=== PATIENT | female | born 1945 | race Caucasian/White ===

== ENCOUNTER → 2020-09-23 14:20 | Outpatient (BNVA) | payer MEDICARE, SELFPAY | PROVIDERS: PCP Registered Nurse; Visit Provider Surgery | DX: Z20.822 Contact with and (suspected) exposure to COVID-19 (principal); Z86.010 Personal history of colon polyps | CPT/HCPCS: 87635 ==

== ENCOUNTER 2020-09-29 10:40 | Day surgery (SDC) | payer MEDICARE, SELFPAY ==
[2020-09-28 10:34] VITALS: BMI 32.8
[2020-09-29 11:11] VITALS: BP 116/73; PULSE 58; RESP 18; TEMP 36.6; O2SAT 97
[2020-09-29] MEDS: sodium chloride 0.9% 1,000 ML 30 ML IV (11:24)
--- NOTE | 2020-09-29 11:53 | W.PM.OPSFHP ---
Same Day Surgery H&P Indication for Procedure/HPI DATE OF PROCEDURE: September 29, 2020 CHIEF COMPLAINT/INDICATIONFOR SURGICAL PROCEDURE: History of colon polyps PREOP DIAGNOSIS: History of colon polyps PLANNED PROCEDRUE: Operation Date: 09/29/20 12:00 Proposed Procedures p Colonoscopy 79982 z86.010(Not Applicable) - Miles Cox MD This is a pleasant 74 years old female patient well-known to me from previous encounter for laparoscopic ventral hernia repair. Patient presents today to my practice with history of colon polyps as she did have a colonoscopy before 5 years or so and she comes today to discuss surveillance colonoscopy she denies bleeding per rectum or history of colon cancer Interim history 09/29/2020 Patient comes today for surveillance colonoscopy ROS All systems have been reviewed negative except as per the above or per problem list Medications/Allergies* Home Medications Medication Instructions Recorded Confirmed Type aspirin 325 mg tablet 325 mg PO DAILY 08/11/20 09/29/20 History hydrochlorothiazide 12.5 mg capsule 12.5 mg PO DAILY 08/11/20 09/29/20 History lisinopril 10 mg tablet 10 mg PO DAILY 08/11/20 09/29/20 History magnesium 200 mg tablet 200 mg PO DAILY 08/11/20 09/29/20 History metoprolol tartrate 12.5 mg PO BID 09/28/20 09/29/20 History Allergies/Adverse Reactions Allergy/AdvReac Type Severity Reaction Status Date / Time No Known Allergies Allergy Verified 09/29/20 11:55 Current Medications: Generic Name Dose Route Start Last Admin Trade Name Freq PRN Reason Stop Dose Admin Sodium Chloride 1,000 mls @ 30 mls/hr 09/29/20 11:00 09/29/20 11:24 Sodium Chloride 0.9% IV 09/30/20 10:59 30 mls/hr .Q24H SINGH Administration Pertinent History/Comorbid Conditions* Family History (Updated 08/11/20 @ 10:04 by Rosa Chisholm RN) Denies family history of Anesthesia complication Bleeding disorder Social History Smoking and tobacco status: never smoked Pertinent Exam Findings alert, clear to auscultation bilaterally, regular rate & rhythm, operative site marked and procedure specific exam findings (Abdominal examination nontender nondistended soft, obese) Recommendations Surgery/Procedure today (Colonoscopy with possible biopsy and possible polypectomy) Other Plans: Plan of care; After thorough history and physical examination and reviewing the chart, plan to perform surveillance colonoscopy colonoscopy. I discussed with the patient in details the risks,benefits,alternatives and indications.The risk of aspiration, bleeding, soft tissue injury, perforation of the colon and other potential concomitant complications were explained to the patient in details,also the potential need for Laproscoy/Laparotomy to repair any related complications including but not limited to colectomy and or Closotomy.The patient understood this well and did agree to proceed. Rationale was carefully and clearly discussed with the patient.Appropriate informed consent have been reviewed and signed All questions have been answered and all concerns have been addressed to patient's satisfaction. Verbal and written Instructions were given to the patient for colonoscopy prep Coding Level of Care Code Acute Home Health Outreach Coordinator for Blaise Robles
--- NOTE | 2020-09-29 12:02 | ANES.PREANE2 ---
Pre-Anesthetic Assessment Pre-Anesthetic Assessment: Height/Weight: Height 1.7 m Weight 95.254 kg Temp Pulse Resp BP Pulse Ox 97.9 F 58 L 18 116/73 97 09/29/20 11:11 09/29/20 11:11 09/29/20 11:11 09/29/20 11:11 09/29/20 11:11 Preop Diagnosis: History of colon polyps Proposed Procedure: Operation Date: 09/29/20 12:00 Proposed Procedures p Colonoscopy 55189 z86.010(Not Applicable) - Miles Cox MD Was Beta Michelle taken within 24 hours: Yes Last intake: Intake Last Liquid Date 09/28/20 Last Liquid Time 22:00 Last Solid Date 09/28/20 Last Solid Time 06:30 Social: Social History: No alcohol and No tobacco Exam: Pre-Anes Outpt Exam: alert, oriented x 3, clear to auscultation bilaterally and regular rate & rhythm Airway: Submandibular: WNL Cervical ROM: WNL MP: 2 Additional comments: upper edentulous, missing several on lower arch CV/HEM: CV/HEM: HTN Metabolic: Metabolic: Morbid obesity Anesthetic Plan: ASA status: 3 Anesthesia: MAC Risk of > 500 ml blood loss (7ml/kg in children): No Meds/Allergies Current Medications: Current Medications Generic Name Dose Route Start Last Admin Trade Name Freq PRN Reason Stop Dose Admin Sodium Chloride 1,000 mls @ 30 ml s/hr 09/29/20 11:00 09/29/20 11:24 Sodium Chloride 0.9% IV 09/30/20 10:59 30 mls/hr .Q24H SINGH Administration PFSH Anesthesia PFSH: Family History Denies family history of Anesthesia complication Bleeding disorder Social History Smoking and tobacco status: never smoked Data Anesthesia Cardiac Studies: No Data to Display
--- NOTE | 2020-09-29 12:29 | ANE.PACU2 ---
Inpatient post-anesthesia follow up: Airway intact: Yes Vital signs: Temperature 97.9 F Pulse Rate 58 Respiratory Rate 18 Blood Pressure 116/73 Pulse Oximetry 97 Oxygen Delivery Me thod Room Air Oxygen Flow Rate Fraction of Inspir ed Oxygen Hydration adequate: Yes Nausea and vomiting: No Pain level: 1 Mental status: Baseline
[2020-09-29 12:32] VITALS: BP 103/66; PULSE 61; RESP 12; TEMP 36.2; O2SAT 96
--- NOTE | 2020-09-29 12:52 | ANE.PACU2 ---
Inpatient post-anesthesia follow up: Airway intact: Yes Vital signs: Temperature 97.2 F Pulse Rate 61 Respiratory Rate 12 Blood Pressure 103/66 Pulse Oximetry 96 Oxygen Delivery Me thod Nasal Cannula Oxygen Flow Rate 2 Fraction of Inspir ed Oxygen Hydration adequate: Yes Nausea and vomiting: No Pain level: 1 Mental status: Baseline
[2020-09-29 13:05] VITALS: BP 121/81; PULSE 61; RESP 12; TEMP 36.2; O2SAT 98
== END 2020-09-29 13:15 | disposition home or self-care (01) ==
PROVIDERS: PCP Registered Nurse; Visit Provider Surgery
PROC: 0DJD8ZZ Inspection of Lower Intestinal Tract, Via Natural or Artificial Opening Endoscopic (ICD-10-PCS; CPT 45378; principal; 2020-09-29 12:00)
DX: Z12.11 Encounter for screening for malignant neoplasm of colon (principal); D12.3 Benign neoplasm of transverse colon; K57.30 Diverticulosis of large intestine without perforation or abscess without bleeding; Z86.010 Personal history of colon polyps; Z79.82 Long term (current) use of aspirin; I10 Essential (primary) hypertension; E66.01 Morbid (severe) obesity due to excess calories; Z68.32 Body mass index [BMI] 32.0-32.9, adult
CPT/HCPCS: 45380; 88305; J7030

== ENCOUNTER 2022-04-25 12:53 | Outpatient (CLI) | payer MEDICARE, SELFPAY ==
--- NOTE | 2022-04-25 13:08 | MM_ITS ---
WS: [id number] BILATERAL 3D TOMOSYNTHESIS DIGITAL DIAGNOSTIC MAMMOGRAPHY WITH CAD CLINICAL INFORMATION: RT BREAST LUMP HISTORY: Palpable lumps RIGHT breast COMPARISON: Outside examinations April 13, 2021 and April 06, 2020 TECHNIQUE: Bilateral CC, MLO, and ML views. FINDINGS: Scattered fibroglandular densities bilaterally. Palpable markers RIGHT breast. No definite underlying mammographic abnormalities in the area of palpable markers. Ultrasound is pending. LEFT breast is unremarkable and unchanged. Scattered bilateral incidental punctate calcifications. ULTRASOUND BREAST RIGHT TECHNIQUE: Ultrasound right breast focused area of concern. CLINICAL INFORMATION: RT BREAST LUMP FINDINGS: Ultrasound RIGHT breast area of palpable concern. Ultrasound at the 7:00 position 3 cm from the nippl e and 4:00 position 2 cm from the nipple. Normal-appearing underlying parenchymal tissue. No cystic o r solid lesions. No suspicious lesions to target for biopsy. Recommend return to annual screening [facility] MM/[place] [id number] IMPRESSION: BI-RADS: 2-Benign FOLLOW UP: 1 Year Follow-up Recommend return to annual screening mammography.
== END 2022-04-25 12:54 | disposition home or self-care (01) ==
LOC: RAD 12:55
PROVIDERS: PCP Registered Nurse; Visit Provider Registered Nurse
DX: N63.10 Unspecified lump in the right breast, unspecified quadrant (principal)
CPT/HCPCS: 76642; 77062

== ENCOUNTER 2023-05-15 08:01 | Outpatient (CLI) | payer MEDICARE, SELFPAY ==
--- NOTE | 2023-05-15 08:00 | MM_ITS ---
WS: [id number] Bilateral screening 3D tomosynthesis digital mammogram, 05/15/2023 Clinical Data: SCREENING Comparison: 03/25/2022, 04/13/2021, 04/06/2020, 03/25/2019, 03/27/2018, 03/20/2017, 03/14/2016, 03/16/2015, 03/10, 02/10/2013, 08/31/2009, 09/08/2008, 03/24/2008, 09/08/2007. Findings: The breast parenchymal pattern shows fibroglandular tissue. No spiculated masses or clustered calcifi cations are seen. There are no secondary signs of carcinoma. Mole markers are on both breasts. There are small lymph nodes in both axilla. Impression: 1. Negative bilateral mammogram unchanged. 2. Recommend annual screening mammograms. MM/[place] [id number] BIRADS: 1-Negative FOLLOW UP: 1 Year Follow-up The CAD cargo checker was used.
== END 2023-05-15 08:02 | disposition home or self-care (01) ==
LOC: MOBLMAM 08:11
PROVIDERS: Visit Provider Nurse Practitioner Family
DX: Z12.31 Encounter for screening mammogram for malignant neoplasm of breast (principal)
CPT/HCPCS: 77063; 77067

== ENCOUNTER → 2024-04-17 14:28 | Outpatient (BNVA) | payer MEDICARE, SELFPAY | PROVIDERS: Visit Provider Obstetrics & Gynecology | DX: N90.7 Vulvar cyst (principal) | CPT/HCPCS: 88304 ==